=== PATIENT | male | born 1990 | race Caucasian/White ===

== ENCOUNTER 2017-09-10 00:45 | Emergency (ER) | payer BC ==
[~2017-09-10] VITALS: Ht 170.2 cm; Wt 79.4 kg
[2017-09-10 00:51] VITALS: Ht 170.2 cm; Wt 79.4 kg
[2017-09-10 01:51] VITALS: BP 130/67
== END 2017-09-10 01:51 | disposition home or self-care (01) ==
LOC: ED 00:45
DX: S29.012A Strain of muscle and tendon of back wall of thorax, initial encounter (principal); X58.XXXA Exposure to other specified factors, initial encounter; Y93.89 Activity, other specified; Y92.89 Other specified places as the place of occurrence of the external cause; Y99.8 Other external cause status
CPT/HCPCS: J1885